=== PATIENT | female | born 1965 | race Caucasian/White ===

== ENCOUNTER 2023-08-08 17:23 | Emergency (ER) | payer BC, MEDICAID ==
[2023-08-08] MEDS ORDERED: Amoxicillin/Clavulanate K 875-125 MG Tab PO ONE (17:51)
[2023-08-08 18:30] VITALS: BP 102/90; PULSE 69
== END 2023-08-08 18:30 | disposition home or self-care (01) ==
LOC: JD.ED 17:23
DX: R04.0 Epistaxis (principal); I10 Essential (primary) hypertension; E78.00 Pure hypercholesterolemia, unspecified; K21.9 Gastro-esophageal reflux disease without esophagitis; E03.9 Hypothyroidism, unspecified; Z86.73 Personal history of transient ischemic attack (TIA), and cerebral infarction without residual deficits; Z79.899 Other long term (current) drug therapy; Z79.02 Long term (current) use of antithrombotics/antiplatelets
CPT/HCPCS: 30903; 30905; 99283; A9270